=== PATIENT | male | born 1960 | race Caucasian/White ===

== ENCOUNTER → 2021-05-08 | Emergency (ER) | payer SELFPAY ==
[~2021-05-08] VITALS: Ht 67 cm; Wt 63.0 kg
--- OUTSIDE RECORDS SUMMARY | 2021-05-08 16:33 | XMS REPORT | Clinical Summary ---
Author Author [facility] Organization [facility] Address Unknown Phone Unavailable Care Team Providers Care Rent Control Office Manager Name Role Phone None, None MD PP Unavailable Allergies Comments Active Allergy Reactions Severity Noted Date Penicillins Rash Medium 10/13/2017 Medications End Date Status Medication Sig Dispensed Refills Start Date Active HYDROcodone-acetaminophen Take 1 tablet 30 tablet 0 (NORCO) 5-325 mg per by mouth 8 tablet every 4 (four) hours if needed for moderate pain (4-6) Earliest Fill Date: 10/26/17. Active gabapentin (NEURONTIN) Take by mouth 0 250 mg/5 mL solution 3 (three) times per day. Active ergocalciferol (DRISDOL) Take by mouth 0 8,000 unit/mL drops 1 (one) time each day. Active Problems Problem Noted Date PEG tube malfunction 01/26/2019 Acute blood loss anemia 10/25/2017 Dysphagia 10/21/2017 Encounters Care Team Description Date Type Specialty 04/14/2021 Emergency from Last 3 Months Family History Medical History Relation Name Comments No Known Problems Father No Known Problems Mother Relation Name Status Comments Father Mother Social History Date Tobacco Use Types Packs/Day Years Used Current Every Day Smoker 1 30 Smokeless Tobacco: Never Used Tobacco Cessation: Ready to Quit: No; Co unseling Given: No Comments Alcohol Use Standard Drinks/Week Not Currently 0 (1 standard drink = 0.6 o z pure alcohol) Sex Assigned at Date Recorded Not on file Industry Job Start Date Occupation Not on file Not on file Not on file Last Filed Vital Signs Reading Time Taken Comments Vital Sign 148/89 03/02/2020 10:30 AM CDT Blood Pressure 98 03/02/2020 10:30 AM CDT Pulse 36 C (96.8 F) 03/02/2020 10:30 AM CDT Temperature 17 03/02/2020 10:30 AM CDT Respiratory Rate 100% 03/02/2020 10:30 AM CDT Oxygen Saturation - - Inhaled Oxygen Concentration 63.5 kg (140 lb) 03/02/2020 12:43 PM CDT Weight 170.2 cm (5' 7.01") 03/02/2020 12:43 PM CDT Height 21.92 03/02/2020 12:43 PM CDT Body Mass Index Plan of Treatment Health Maintenance Due Date Last Done Comments CT Colonography 1959 Cologuard 1959 Lipid Panel 1959 Hepatitis A Vaccines (1 1960 of 2 - Risk 2-dose series) MMR Vaccines (1 of 1 - 1960 Standard series) Varicella Vaccines (1 of 1960 2 - 2-dose childhood series) Pneumococcal (1 of 2 - 1965 PPSV23) COVID-19 Vaccine (1) 1971 Depression Screening 1971 DTaP,Tdap,and Td Vaccines 1978 (1 - Tdap) Hepatitis B Vaccines (1 1978 of 3 - Risk 3-dose series) FOBT/FIT 2004 Sigmoidoscopy 2004 Lung Cancer Screening 2009 Zoster Vaccines (1 of 2) 2009 Influenza Vaccine (#1) 2021 Colonoscopy 08/05/2028 08/05/2018 Colorectal Cancer 08/05/2028 Screening HIB Vaccines Aged Out No longer eligible based on patient's age to complete this topic HPV Vaccines Aged Out No longer eligible based on patient's age to complete this topic IPV Vaccines Aged Out No longer eligible based on patient's age to complete this topic Meningococcal Vaccine Aged Out No longer eligib le based on patient's age to complete this topic Results Not on filefrom Last 3 Months Insurance Type Payer Benefit Subscriber ID Effective Phone Address Plan / Dates 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'[employer] [id number] 2020- [phone] PO Advid x NET Present [address] [address] [place] [facility] [[email or web address] [id number] WORKER'S COMP [employer] [id number] 2020- [phone] PO David x NET Present [address] [address] [facility] [[email or web address]] [id number] WORKER'S COMP WORK COMP [id number] 2017 [address] -Present [address] [address] [id number] [id number] Workers Employer 1960 [address] [place], [place] [address] MARK LORENZ Workers Employer 1960 [address] (Home) [place], [place] [address] Mark Lorenz Personal/F Self 1960 [address] (Home) [place], [place] [address] Advance Directives Patient Ammonia Operator Explanation Type Date Recorded Advance Directives and Living Will Power of Manager Estate Date Inactivated Comments Code Status Date Activated 03/02/2020 4:50 PM Full Code 03/02/2020 3:56 AM 03/02/2020 3:56 AM Full Code 03/01/2020 8:48 PM 01/28/2019 12:57 PM Full Code 01/26/2019 6:49 PM 08/05/2018 4:11 PM Full Code 08/05/2018 11:27 AM 10/26/2017 9:44 PM Full Code 10/24/2017 9:59 AM Care Teams Start Date End Date Rent Control Office Manager Relationship Specialty 08/05/18 None, None, MD PCP - General Internal none Medicine
--- OUTSIDE RECORDS SUMMARY | 2021-05-08 16:34 | XMS REPORT | Encounter Summary ---
Author Author [facility] Organization [facility] Address Unknown Phone Unavailable Care Team Providers Care Tank Builder Helper Name Role Phone None, None MD PCP Unavailable Encounter Details Care Team Description Date Type Department 04/14/2021 Emergency [facility] [place] [address] [place] [address] Social History Date Tobacco Use Types Packs/Day Years Used Current Every Day Smoker 1 30 Smokeless Tobacco: Never Used Comments Alcohol Use Standard Drinks/Week Not Currently 0 (1 standard drink = 0.6 o z pure alcohol) Sex Assigned at Date Recorded Not on file Industry Job Start Date Occupation Not on file Not on file Not on file documented as of this encounter Medications at Time of Discharge Start Date End Date Medication Sig Dispensed Refills ergocalciferol (DRISDOL) Take by mouth 0 8,000 unit/mL drops 1 (one) time each day. gabapentin (NEURONTIN) Take by mouth 0 250 mg/5 mL solution 3 (three) times per day. 10/26/2017 HYDROcodone-acetaminophen Take 1 tablet 30 tablet 0 (NORCO) 5-325 mg per by mouth tablet every 4 (four) hours if needed for moderate pain (4-6) Earliest Fill Date: 10/26/17. documented as of this encounter Plan of Treatment Not on filedocumented as of this encounter Visit Diagnoses Not on filedocumented in this encounter Care Teams Start Date End Date Tank Builder Helper Relationship Specialty 08/05/18 None, Jluis, PCP - General Internal none Medicine documented as of this encounter
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
[2021-05-08 17:19] VITALS: BP 197/126
== END ==
LOC: ER 16:31
DX: R13.10 Dysphagia, unspecified (principal)
CPT/HCPCS: 99281

== ENCOUNTER 2021-05-17 12:05 | Day surgery (SDC) | payer OTHER ==
[~2021-05-17] VITALS: Ht 170 cm; Wt 63.0 kg
--- NOTE | 2021-05-17 12:17 | Progress Note-Pre Operative ---
Pre-Operative Progress Note H&P Reviewed The H&P was reviewed, patient examined and no changes noted. Date Seen by Provider: May 17, 2021 Time Seen by Provider: 11:30 Date H&P Reviewed: May 17, 2021 Time H&P Reviewed: 11:30 Pre-Operative Diagnosis: dysphagia, weight loss. DEBORAH HEATH MD May 17, 2021 12:17
--- NOTE | 2021-05-17 12:19 | Discharge Inst-Surgical ---
D/C Lap Instructions-IVANA Follow Up PRN Activity as tolerated may access and use gastrostomy tube at anytime. Avoid Alcohol, Caffeine, Spicy [place] and Acid foods. Drink 64 fluid oz or more of fluids per day. Symptoms to Report: Fever over 101 degree F, Nausea/Vomiting If any problems/questions: Contact your physician or go to Emergency Room DEBORAH HEATH MD May 17, 2021 12:19
[2021-05-17 12:20] VITALS: BP 101/69
[2021-05-17] MEDS ORDERED: LACTATED RINGERS 1,000 ML IV ONE (13:22)
[2021-05-17] MEDS ORDERED: LACTATED RINGERS 1,000 ML IV STA (13:44)
[2021-05-17] MEDS ORDERED: LIDOCAINE JELLY 2% 6 ML SYRINGE MM PRN (13:45)
[2021-05-17] MEDS ORDERED: proPOfol 200 MG/20 ML (DIPRIVAN) VIAL IV ONE (13:50)
[2021-05-17] MEDS ORDERED: MIDAZOLAM 2 MG/2 ML (VERSED) VIAL ONE (13:50)
[2021-05-17] MEDS ORDERED: AMT10T PO (13:54)
[2021-05-17] MEDS ORDERED: AMLO-251 PO (13:54)
[2021-05-17] MEDS ORDERED: HURRICAINE EXT TUBE (BENZOCAINE) XX ONE (14:00)
[2021-05-17 14:20] VITALS: BP 176/112
[2021-05-17 14:25] VITALS: BP 184/113
--- NOTE | 2021-05-17 14:28 | Anesthesia-General Post-Op ---
MAC Patient Condition Mental Status/LOC: Same as Preop Cardiovascular: Satisfactory Nausea/Vomiting: Absent Respiratory: Satisfactory Pain: Controlled Complications: Absent Post Op Complications Complications None Follow Up Care/Instructions Patient Instructions None needed. Anesthesiology Discharge Order Discharge Order Patient is doing well, no complaints, stable vital signs, no apparent adverse anesthesia problems. No complications reported per nursing. JOSE MONTGOMERY CRNA May 17, 2021 14:28
[2021-05-17 14:30] VITALS: BP 184/111
--- NOTE | 2021-05-17 14:34 | Progress Note-Post Operative ---
Post-Operative Progess Note Surgeon (s)/Cone Picker (s) Surgeon DEBORAH HEATH MD Cone Picker: none Pre-Operative Diagnosis dysphagia, weight loss. Post-Operative Diagnosis same Procedure & Operative Findings Date of Procedure 05/17/21 Procedure Performed/Findings EGD with bx and perc gastrostomy tube placement. Anesthesia Type mac with local Estimated Blood Loss Estimated blood loss (mL): minimal Specimens/Packing Specimens Removed ge jxn, antrum DEBORAH HEATH MD May 17, 2021 14:34
[2021-05-17 15:01] VITALS: BP 193/110
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
== END 2021-05-17 15:05 | disposition home or self-care (01) ==
LOC: ENDO 12:05
PROVIDERS: ATTEND Surgery
DX: K21.00 Gastro-esophageal reflux disease with esophagitis, without bleeding (principal); T28 Burn and corrosion of other internal organs; K29.70 Gastritis, unspecified, without bleeding; I10 Essential (primary) hypertension; K44.9 Diaphragmatic hernia without obstruction or gangrene; E46 Unspecified protein-calorie malnutrition; F17.210 Nicotine dependence, cigarettes, uncomplicated; Z79.899 Other long term (current) drug therapy
CPT/HCPCS: 87636